=== PATIENT | female | born 1965 | race Caucasian/White ===

== ENCOUNTER 2022-01-23 06:10 | Emergency (ER) | payer OTHER ==
[~2022-01-23] VITALS: Ht 162.6 cm; Wt 64.0 kg
[2022-01-23] MEDS ORDERED: HYDR1TAB94 PO (09:06)
== END 2022-01-23 09:16 | disposition home or self-care (01) ==
LOC: ER 06:10
DX: S52.592A Other fractures of lower end of left radius, initial encounter for closed fracture (principal); S52.692A Other fracture of lower end of left ulna, initial encounter for closed fracture; W01.0XXA Fall on same level from slipping, tripping and stumbling without subsequent striking against object, initial encounter; Y93.41 Activity, dancing
CPT/HCPCS: 29105; 73100; 96374-59; 96375-59; 96376-59; 99284-25; J1170; J1885